=== PATIENT | female | born 1990 | race Caucasian/White ===

== ENCOUNTER 2021-04-01 10:02 | Emergency (ER) | payer BC ==
[2021-04-01 11:48] LABS: BASOPHILS % (AUTO) 0.6 %; EOSINOPHILS # (AUTO) 0.1 10^3/uL (0.0-0.7); EOSINOPHILS % (AUTO) 1.3 %; HCT - HEMATOCRIT 37.6 % (37.0-47.0); HGB - HEMOGLOBIN 12.5 g/dL (12.0-16.0); LYMPHOCYTES # (AUTO) 1.7 10^3/uL (1.5-3.5); LYMPHOCYTES % (AUTO) 24.1 %; MEAN CORPUSCULAR HGB CONC 33.2 g/dL (32.0-36.0); MEAN CORPUSCULAR VOLUME 102.2 fL (81.0-99.0); MEAN PLATELET VOLUME 10.5 fL (7.9-10.8); MONOCYTES # (AUTO) 0.5 10^3/uL (0.0-1.0); MONOCYTES % (AUTO) 6.8 %; NEUTROPHILS # (AUTO) 4.7 10^3/uL (1.5-6.6); NEUTROPHILS % (AUTO) 67.1 %; PLT - PLATELET COUNT 311 10^3/uL (130-450); RED BLOOD COUNT 3.68 10^6/uL (4.20-5.40); RED CELL DISTRIBUTION WIDTH 12.3 % (12.0-15.0); WHITE BLOOD COUNT 6.9 x10^3/uL (4.8-10.8)
[2021-04-01 12:01] LABS: ALBUMIN 4.2 g/dL (3.2-5.5); ALBUMIN/GLOBULIN RATIO 1.6 (1.0-2.2); ALKALINE PHOSPHATASE 65 IU/L (42-121); ALT ALANINE AMINOTRANSFERASE < 10 IU/L (10-60); AST ASPARTATE AMINOTRANSFERASE 15 IU/L (10-42); BILIRUBIN,TOTAL 0.8 mg/dL (0.2-1.0); BUN - BLOOD UREA NITROGEN 7 mg/dL (6-20); CALCIUM 9.1 mg/dL (8.5-10.3); CARBON DIOXIDE - CO2 23 mmol/L (21-32); CHLORIDE 106 mmol/L (101-111); CREATININE 0.5 mg/dL (0.4-1.0); GFR - MDRD 146 (>89); GLUCOSE 94 mg/dL (70-100); LIPASE 28 U/L (22-51); SODIUM 137 mmol/L (135-145); TOTAL PROTEIN 6.9 g/dL (6.7-8.2)
--- NOTE | 2021-04-01 12:14 | Ultrasound Report ---
PROCEDURE: OB First Trimester INDICATIONS: 11 wks vag bleed OUTSIDE/PRIOR DATING DATA: Last menstrual period (LMP): 01/11/2021. LMP-based estimated date of delivery (DANIEL): 10/18/2021. First dating scan (date and location): 04/01/2021. Estimated date of delivery (DANIEL) from first dating scan: Estimated 11/23/2021 based on mean gestational sac diameter. TECHNIQUE: Real-time scanning was performed of the fetus and maternal pelvic organs, with image documentation. T ransvaginal ultrasound was performed. COMPARISON: None. FINDINGS: Embryo: No crown-rump length is visualized at this time. Mean gestational sac diameter 1.5 cm. This corresponds to estimated gestational age of 6 weeks 2 days. No yolk sac is seen. Heart rate: Not applicable. Subchorionic hemorrhage right of the gestational sac measuring 3.4 x 2.2 x 1.1 cm. Measurement variability in dating: +/- 4 weeks by LMP, +/- 7 days by mean sac diameter (use before 6 weeks gestation if crown-rump length not able to be measured), +/- 5 days by crown-rump length (6-12 weeks gestation). Maternal organs: Ovaries are within normal limits. Left ovary corpus luteum measuring 1.4 cm. Small ovarian follicles. IMPRESSION: 1. Intrauterine gestational sac corresponding to estimated gestational age of 6 weeks 2 days. This is discordant with the clinical dating based on LMP. No pole or yolk sac is seen. Ultrasound find ings suspicious for, but not diagnostic of, failure. -Follow-up ultrasound in approximately 14 days could be performed for confirmation of failu re. Recommend trending beta hCG. 2. Small subchorionic hemorrhage. Reviewed by: Guanako Del Rosario MD on 04/01/2021 11:13 AM CLAUDIO Approved by: Guanako Del Rosario MD on 04/01/2021 11:13 AM CLAUDIO Station ID: [id number]
[2021-04-01 12:28] LABS: BILIRUBIN,URINE NEGATIVE (NEGATIVE); GLUCOSE, URINE (UA) NEGATIVE (NEGATIVE); KETONES,URINE (UA) NEGATIVE (NEGATIVE); LEUKOCYTE ESTERASE, URINE NEGATIVE (NEGATIVE); NITRITE,URINE NEGATIVE (NEGATIVE); OCCULT BLOOD,URINE TRACE-LYSE (NEGATIVE); PROTEIN,URINE NEGATIVE (NEGATIVE); UROBILINOGEN,URINE 0.2 (NORMAL) E.U./dL (NORMAL)
[2021-04-01 12:31] LABS: CLARITY,URINE CLEAR (CLEAR)
--- NOTE | 2021-04-01 12:50 | ED Physician Documentation ---
PD HPI FEMALE - Stated complaint Stated Complaint: FEMALE /SPOTTING - Chief complaint Chief Complaint: Abd Pain - History obtained from History obtained from: Patient, Family - History of Present Illness Timing - onset: How many days ago (5) Timing - duration: Days (5) Timing - details: Gradual onset Pain level max: 1 Pain level max: 1 Associated symptoms: Vaginal bleeding (spotting). 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 No passage of large tissue. Sent in by her road traffic controller today. Nothing makes it better or worse Review of Systems Ten Systems: 10 systems reviewed and negative Constitutional: denies: Fever, Chills Throat: denies: Sore throat Respiratory: denies: Cough GI: denies: Abdominal Pain, Nausea, Vomiting, Diarrhea : denies: Dysuria Skin: denies: Rash Musculoskeletal: denies: Neck pain, Back pain Neurologic: denies: Headache PD PAST MEDICAL HISTORY - Past Medical History Past Medical History: No - Past Surgical History Past Surgical History: No - Present Medications Home Medications: Ambulatory Orders Medication Instructions Recorded Confirmed Pnv No.95/Ferrous Fum/Folic AC 1 each PO DAILY 04/01/21 04/01/21 [ Tablet] - Allergies Allergies/Adverse Reactions: Allergies Allergy/AdvReac Type Severity Reaction Status Date / Time No Known Drug Allergies Allergy Verified 04/01/21 10:14 - Social History Does the pt smoke?: No Smoking Status: Never smoker PD ED PE NORMAL - Vitals Vital signs reviewed: Yes - General General: Alert and oriented X 3, No acute distress, Well developed/nourished - HEENT HEENT: PERRL, Moist mucous membranes - Neck Neck: Supple, no meningeal sign - Cardiac Cardiac: RRR, Strong equal pulses - Respiratory Respiratory: No respiratory distress - Abdomen Abdomen: Soft, Non tender, Non distended - Derm Derm: Warm and dry - Extremities Extremities: No edema - Neuro Neuro: Alert and oriented X 3 - Psych Psych: Normal mood, Normal affect Results - Vitals Vitals: Vital Signs - 24 hr 04/01/21 10:12 Temperature 36.3 C L Heart Rate 94 Respiratory 16 Rate Blood Pressure 124/55 L O2 Saturation 96 Oxygen O2 Source Room air - Labs Labs: Laboratory Tests 04/01/21 04/01/21 04/01/21 11:00 11:40 11:40 WBC 6.9 RBC 3.68 L Hgb 12.5 Hct 37.6 MCV 102.2 H MCH 34.0 H MCHC 33.2 RDW 12.3 Plt Count 311 MPV 10.5 Neut # (Auto) 4.7 Lymph # (Auto) 1.7 [place] # (Auto) 0.5 Eos # (Auto) 0.1 Baso # (Auto) 0.0 Absolute Nucleated RBC 0.00 Nucleated RBC % 0.0 Sodium 137 Potassium 4.0 Chloride 106 Carbon Dioxide 23 Anion Gap 8.0 BUN 7 Creatinine 0.5 Estimated GFR (MDRD) 146 Glucose 94 Calcium 9.1 Total Bilirubin 0.8 AST 15 ALT < 10 L Alkaline Phosphatase 65 Total Protein 6.9 Albumin 4.2 Globulin 2.7 Albumin/Globulin Ratio 1.6 Lipase 28 HCG, Quant Urine Color YELLOW Urine Clarity CLEAR Urine pH 6.0 Ur Specific [place] 1.010 Urine Protein NEGATIVE Urine Glucose (UA) NEGATIVE Urine Ketones NEGATIVE Urine Occult Blood TRACE-LYSE Urine Nitrite NEGATIVE Urine Bilirubin NEGATIVE Urine Urobilinogen 0.2 (NORMAL) Ur Leukocyte Esterase NEGATIVE Ur Microscopic Review NOT INDICATED Urine Culture Comments NOT INDICATED 04/01/21 11:40 WBC RBC Hgb Hct MCV MCH MCHC RDW Plt Count MPV Neut # (Auto) Lymph # (Auto) [place] # (Auto) Eos # (Auto) Baso # (Auto) Absolute Nucleated RBC Nucleated RBC % Sodium Potassium Chloride Carbon Dioxide Anion Gap BUN Creatinine Estimated GFR (MDRD) Glucose Calcium Total Bilirubin AST ALT Alkaline Phosphatase Total Protein Albumin Globulin Albumin/Globulin Ratio Lipase HCG, Quant 6263.00 Urine Color Urine Clarity Urine pH Ur Specific [place] Urine Protein Urine Glucose (UA) Urine Ketones Urine Occult Blood Urine Nitrite Urine Bilirubin Urine Urobilinogen Ur Leukocyte Esterase Ur Microscopic Review Urine Culture Comments - Rads (name of study) OB US Radiology: Final report received, EMP read contemporaneously, See rad report PD MEDICAL DECISION MAKING - ED course Complexity details: reviewed results, re-evaluated patient, considered differential, d/w patient, d/w family ED course: 30-year-old female with vaginal bleeding affecting early . Her gestational age is approximately 6 weeks and 2 days via ultrasound, but no pole or yolk sac is seen. failure versus early . Recommend follow-up hCG in 2 to 3 days for further evaluation. No evidence of ectopic. Patient counseled regarding signs and symptoms for which I believe and urgent re-evaluation would be necessary. Patient with good understanding of and agreement to plan and is comfortable going home at this time This document was made in part using voice recognition software. While efforts are made to proofread this document, sound alike and grammatical errors may occur. IMPRESSION: 1. Intrauterine gestational sac corresponding to estimated gestational age of 6 weeks 2 days. This is discordant with the clinical dating based on LMP. No pole or yolk sac is seen. Ultrasound findings suspicious for, but not diagnostic of, failure. -Follow-up ultrasound in approximately 14 days could be performed for confirmation of failure. Recommend trending beta hCG. 2. Small subchorionic hemorrhage. Departure - Departure Disposition: Home, Self Care Clinical Impression: Vaginal bleeding affecting early Condition: Good Instructions: ED Miscarriage Poss Follow-Up: Desiree Dyer LMW [Physician No Access] - Within 3 Days Comments: Follow-up with your road traffic controller on Friday or Friday for a repeat hCG level. It is possible that you are having a miscarriage, this will become more likely if the hCG level is gone down on Friday or Friday. If the hCG level is increasing, they will likely want to repeat an ultrasound in 1 to 2 weeks. Return if you worsen. Your hCG level is 6263 today. Your ultrasound results are below
[2021-04-01 13:03] VITALS: BP 108/69
== END 2021-04-01 13:05 | disposition home or self-care (01) ==
LOC: ED 10:02
DX: O20.9 Hemorrhage in early pregnancy, unspecified (principal); Z3A.00 Weeks of gestation of pregnancy not specified; Z3A.01 Less than 8 weeks gestation of pregnancy
CPT/HCPCS: 36415; 80053; 81001; 81003; 83690; 84702; 85025; 87086; 99283; 99284

== ENCOUNTER 2021-04-06 21:34 | Day surgery (SDC) | payer BC ==
[2021-04-06] MEDS ORDERED: SODIUM CHLORIDE 0.9% 1,000 ML IV STA (21:46)
[2021-04-06 21:59] LABS: BASOPHILS # (AUTO) 0.1 10^3/uL (0.0-0.1); BASOPHILS % (AUTO) 0.4 %; EOSINOPHILS # (AUTO) 0.1 10^3/uL (0.0-0.7); EOSINOPHILS % (AUTO) 0.3 %; HCT - HEMATOCRIT 36.7 % (37.0-47.0); HGB - HEMOGLOBIN 12.6 g/dL (12.0-16.0); LYMPHOCYTES # (AUTO) 2.9 10^3/uL (1.5-3.5); LYMPHOCYTES % (AUTO) 16.7 %; MEAN CORPUSCULAR HEMOGLOBIN 34.4 pg (27.0-31.0); MEAN CORPUSCULAR HGB CONC 34.3 g/dL (32.0-36.0); MEAN CORPUSCULAR VOLUME 100.3 fL (81.0-99.0); MEAN PLATELET VOLUME 11.3 fL (7.9-10.8); MONOCYTES # (AUTO) 0.7 10^3/uL (0.0-1.0); MONOCYTES % (AUTO) 4.2 %; NEUTROPHILS # (AUTO) 13.3 10^3/uL (1.5-6.6); PLT - PLATELET COUNT 380 10^3/uL (130-450); RED BLOOD COUNT 3.66 10^6/uL (4.20-5.40)
[2021-04-06 22:05] LABS: CALCIUM 9.2 mg/dL (8.5-10.3); CREATININE 0.8 mg/dL (0.4-1.0); POTASSIUM 3.5 mmol/L (3.5-5.0)
[2021-04-06] MEDS ORDERED: ACETAMINOPHEN 1,000 MG/100 ML 100 ML IV STA (22:32)
[2021-04-07] MEDS ORDERED: MORPHINE 2 MG/ML CARPUJECT IVP STA ×3 (00:07→00:34)
[2021-04-07] MEDS ORDERED: SODIUM CHLORIDE 0.9% 1,000 ML IV STA (00:15)
[2021-04-07] MEDS ORDERED: HYDROmorphone 1 MG/ML CARPUJECT IVP STA (01:09)
--- NOTE | 2021-04-07 01:43 | ED Physician Documentation ---
PD HPI FEMALE - Stated complaint Stated Complaint: FEMALE - Chief complaint Chief Complaint: Abd Pain - History obtained from History obtained from: Patient - History of Present Illness Timing - onset: Enter time (18:30), Today Timing - details: Abrupt onset Pain level max: 8 Associated symptoms: Pelvic pain, Vaginal bleeding. 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 US at that time was concerning for failure (per radiology reading). Patient says that she was seen in follow up/outpatient setting since then and f/u HCG had dropped significantly and she was told she was miscarrying. Patient opted to miscarry at home, as her symptoms were mild. However, at approximately 6:30 PM tonight, she had sudden and significant worsening of amount of vaginal bleeding (had only been spotting) with clots as well as new onset of pelvic cramping pain which is severe at times. I was asked to see this patient shortly after she arrived as she had syncope during triage and found to be hypotensive. Review of Systems Constitutional: reports: Reviewed and negative Cardiac: reports: Reviewed and negative Respiratory: reports: Reviewed and negative GI: denies: Abdominal Pain (pelvic pain and cramping, but not abdominal pain per se), Nausea, Vomiting : reports: Now EGA (patient recently told she is having miscarriage (see HPI)) Musculoskeletal: reports: Reviewed and negative Neurologic: reports: Generalized weakness (in triage but not at home), Syncope (in triage) PD PAST MEDICAL HISTORY - Past Medical History Past Medical History: No - Past Surgical History Past Surgical History: No - Present Medications Home Medications: Ambulatory Orders Medication Instructions Recorded Confirmed Pnv No.95/Ferrous Fum/Folic AC 1 each PO DAILY 04/01/21 04/06/21 [ Tablet] Ibuprofen [Motrin] 600 mg PO Q6H PRN #15 tab 04/07/21 - Allergies Allergies/Adverse Reactions: Allergies Allergy/AdvReac Type Severity Reaction Status Date / Time No Known Drug Allergies Allergy Verified 04/01/21 10:14 - Social History Does the pt smoke?: No Smoking Status: Never smoker Does the pt drink ETOH?: No Does the pt have substance abuse?: No - Immunizations Immunizations are current?: Yes PD ED PE NORMAL - Vitals Vital signs reviewed: Yes - General General: Alert and oriented X 3, Well developed/nourished, Other (appears pale, obvious painful distress as she becomes more awake and alert) - HEENT HEENT: Other (tacky mucous membranes) - Cardiac Cardiac: RRR, No murmur - Respiratory Respiratory: No respiratory distress, Clear bilaterally - Abdomen Abdomen: Soft, Non distended, Other (midline lower abdominal and anterior pelvic tenderness) - Derm Derm: Other (pale) Results - Vitals Vitals: Vital Signs - 24 hr 04/06/21 04/06/21 04/06/21 21:40 22:00 22:40 Temperature 36.6 C Heart Rate 84 64 73 Respiratory 24 18 16 Rate Blood Pressure 54/40 L 100/51 L 103/71 O2 Saturation 100 99 04/07/21 04/07/21 04/07/21 00:40 02:00 03:48 Temperature 36.1 C L Heart Rate 68 61 125 H Respiratory 18 16 22 Rate Blood Pressure 110/67 108/61 114/54 L O2 Saturation 100 100 100 04/07/21 04/07/21 04/07/21 03:50 03:55 04:00 Temperature 36.1 C L 36.1 C L 36.1 C L Heart Rate 115 H 116 H 109 H Respiratory 19 22 22 Rate Blood Pressure 107/65 117/52 L 114/51 L O2 Saturation 100 100 100 04/07/21 04/07/21 04/07/21 04:05 04:10 04:24 Temperature 36.1 C L 36.1 C L 36.6 C Heart Rate 102 H 103 H 94 Respiratory 20 21 12 Rate Blood Pressure 107/56 L 108/52 L 117/49 L O2 Saturation 99 100 100 04/07/21 04/07/21 04/07/21 04:30 04:47 05:02 Temperature 36.6 C 36.6 C 36.5 C Heart Rate 105 H 91 96 Respiratory 12 16 16 Rate Blood Pressure 115/48 L 107/54 L 94/59 L O2 Saturation 99 99 99 04/07/21 04/07/21 04/07/21 05:17 05:42 06:17 Temperature 36.6 C 36.7 C Heart Rate 96 95 84 Respiratory 16 16 16 Rate Blood Pressure 100/57 L 105/52 L 104/52 L O2 Saturation 99 98 98 Oxygen O2 Source Room air - Labs Labs: Laboratory Tests 04/06/21 04/06/21 04/06/21 21:46 21:46 21:46 WBC 17.0 H RBC 3.66 L Hgb 12.6 Hct 36.7 L MCV 100.3 H MCH 34.4 H MCHC 34.3 RDW 12.0 Plt Count 380 MPV 11.3 H Neut # (Auto) 13.3 H Lymph # (Auto) 2.9 [place] # (Auto) 0.7 Eos # (Auto) 0.1 Baso # (Auto) 0.1 Absolute Nucleated RBC 0.00 Nucleated RBC % 0.0 Sodium 134 L Potassium 3.5 Chloride 102 Carbon Dioxide 21 Anion Gap 11.0 BUN 11 Creatinine 0.8 Estimated GFR (MDRD) 85 L Glucose 139 H POC Whole Bld Glucose Calcium 9.2 HCG, Quant Nasal Adenovirus (PCR) Nasal B. parapertussis DNA (PCR) Nasal Coronavir 229E PCR Nasal Coronavir HKU1 PCR Nasal Coronavir NL63 PCR Nasal Coronavir OC43 PCR Nasal Enterovir/Rhinovir PCR Nasal Influenza B PCR Nasal Influenza A PCR Nasal Parainfluen 1 PCR Nasal Parainfluen 2 PCR Nasal Parainfluen 3 PCR Nasal Parainfluen 4 PCR Nasal RSV (PCR) Nasal B.pertussis DNA PCR Nasal C.pneumoniae (PCR) Lizandro Human Metapneumo PCR Nasal M.pneumoniae (PCR) Nasal SARS-CoV-2 (PCR) Blood Type A POSITIVE Antibody Screen NEGATIVE 04/06/21 04/06/21 04/07/21 21:46 21:47 01:45 WBC RBC Hgb Hct MCV MCH MCHC RDW Plt Count MPV Neut # (Auto) Lymph # (Auto) [place] # (Auto) Eos # (Auto) Baso # (Auto) Absolute Nucleated RBC Nucleated RBC % Sodium Potassium Chloride Carbon Dioxide Anion Gap BUN Creatinine Estimated GFR (MDRD) Glucose POC Whole Bld Glucose 150 H Calcium HCG, Quant 1485.00 Nasal Adenovirus (PCR) NOT DETECTED Nasal B. parapertussis DNA (PCR) NOT DETECTED Nasal Coronavir 229E PCR NOT DETECTED Nasal Coronavir HKU1 PCR NOT DETECTED Nasal Coronavir NL63 PCR NOT DETECTED Nasal Coronavir OC43 PCR NOT DETECTED Nasal Enterovir/Rhinovir PCR NOT DETECTED Nasal Influenza B PCR NOT DETECTED Nasal Influenza A PCR NOT DETECTED Nasal Parainfluen 1 PCR NOT DETECTED Nasal Parainfluen 2 PCR NOT DETECTED Nasal Parainfluen 3 PCR NOT DETECTED Nasal Parainfluen 4 PCR NOT DETECTED Nasal RSV (PCR) NOT DETECTED Nasal B.pertussis DNA PCR NOT DETECTED Nasal C.pneumoniae (PCR) NOT DETECTED Lizandro Human Metapneumo PCR NOT DETECTED Nasal M.pneumoniae (PCR) NOT DETECTED Nasal SARS-CoV-2 (PCR) NOT DETECTED Blood Type Antibody Screen - Rads (name of study) first trimester US with TV Radiology: Prelim report reviewed, See rad report PD MEDICAL DECISION MAKING - ED course Complexity details: reviewed old records, reviewed results, re-evaluated patient, considered differential, d/w patient ED course: presents with vaginal bleeding and severe pelvic pain in setting of recently being told she is in the process of having miscarriage. She is markedly hypotensive in triage and has syncopal episode but she recovered from this upon being brought into ED room and placed on stretcher in trendelenburg position. IV fluids given although her blood pressure already had improved. H/H is normal and US shows there is still POC in lower uterine segment. She had ongoing waxing and waning pelvic pain that was severe at times. No improvement with ofirmev, minimal with morphine (2mg x 2 doses). I was reluctant to give larger doses or stronger narcotics for earlier part of ED stay due to soft blood pressures and she had a second drop into hypotensive blood pressures later in stay with pre- syncopal symptoms (lightheaded, again became pale), but she again recovered from this with more IV fluids. I discussed the case with Dr. Mars (instructor product inspection library circulation clerk) who came to ED, evaluated patient, and will take patient to OR. Her blood pressure improved significantly enough to allow for 1mg IV dilaudid late in ED stay. Departure - Departure Disposition: ED Transfer to [facility] Clinical Impression: Incomplete Syncope Qualifiers: Syncope type: unspecified Qualified Code(s): R55 - Syncope and collapse Condition: Stable Discharge Date/Time: 04/07/21 02:40
--- NOTE | 2021-04-07 02:06 | HISTORY & PHYSICAL EXAMINATION ---
HPI - History Obtained From Records Reviewed: RN notes reviewed History obtained from: Patient, Family Exam limitations: No limitations - History of Present Illness Severity at the worst: reports: Severe Pain Quality: reports: Sharp, Cramping Context-Pain started w/: reports: Other (contractions) Timing: reports: Gradual onset Duration: reports: Days: (1) Improved with: reports: Nothing Worsened by: reports: Nothing HPI Comment/Other: Patient is a 30-year-old G1 at 12 weeks gestation by LMP of late December and 6 weeks by previous ultrasound. She was seen several days ago for concern for miscarriage and was expectantly managing this. She started bleeding more heavily last night and came to the ED with lightheadedness. She did have two witnessed syncopal vs near syncopal events with blood pressures down to 50s/40s. She has been bleeding heavier this evening, but has decreased over the last several hours. This was a planned and desired . She is having severe cramps with contractions and is in significant pain during each contraction. She is concerned about how much she is affected by this and would like further management. PMH, PSH, FH all unremarkable. No known drug allergies. Only takes vitamins. 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 : positive: None HEENT: positive: None Psych: positive: None Musculoskeletal: positive: None Derm: positive: None MRSA Hx?: No Social & Family Hx - Social History Does the pt smoke?: No Smoking Status: Never smoker Does the pt drink ETOH?: No Does the pt have substance abuse?: No Meds/Allgy - Home Medications Home Medications: Ambulatory Orders Medication Instructions Recorded Confirmed Pnv No.95/Ferrous Fum/Folic AC 1 each PO DAILY 04/01/21 04/06/21 [ Tablet] - Allergies Allergies/Adverse Reactions: Allergies Allergy/AdvReac Type Severity Reaction Status Date / Time No Known Drug Allergies Allergy Verified 04/01/21 10:14 Review of Systems - Constitutional Constitutional: denies: Fatigue, Fever, Chills, Weakness - Cardiovascular Cariovascular: reports: Lightheadedness, Syncope. denies: Irregular heart rate, Palpitations, Chest pain - Respiratory Respiratory: denies: Cough, Wheezing, Orthopnea, SOB at rest, SOB with exertion - Gastrointestinal Gastrointestinal: reports: Abdominal pain. denies: Constipation, Diarrhea, Change in bowel habits, Nausea, Vomiting - Genitourinary Genitourinary: denies: Dysuria, Frequency, Hematuria - Musculoskeletal Musculoskeletal: reports: Back pain. denies: Muscle weakness - Integumentary Integumentary: denies: Rash - Neurological Neurological: denies: General weakness Exam - Vital Signs Vital Signs: Vital Signs x48h Temp Pulse Resp BP Pulse Ox 04/07/21 02:00 61 16 108/61 100 04/07/21 00:40 68 18 110/67 100 04/06/21 22:40 73 16 103/71 99 04/06/21 22:00 64 18 100/51 L 04/06/21 21:40 97.9 F 84 24 54/40 L 100 - Physical Exam General Appearance: positive: No acute distress, Alert Eyes Bilateral: positive: Normal inspection, PERRL, EOMI Respiratory: positive: No respiratory distress Cardiovascular: positive: Regular rate & rhythm Abdomen: positive: Non-tender, No distention. negative: Guarding Neurologic/Psychiatric: positive: Oriented x3, CN's nml (2-12), Motor nml, Sensation nml, Mood/affect nml Comments/Other: ALUMINUM POOL INSTALLER: Normal external genitalia, no lesions or masses. Normal-appearing urethra and urethral meatus. Normal vaginal mucosa with rugation. Copious amount of blood and clot. Cervix dilated to fingertip. Uterus tender, frequent contractions. No adnexal masses or tenderness. Results - Lab Results Fish Bones: 04/06/21 21:46 04/06/21 21:46 Other Lab Results: Lab Results x24hrs 04/06/21 04/06/21 04/06/21 Range/Units 21:47 21:46 21:46 WBC (4.8-10.8) x10^3/uL RBC (4.20-5.40) 10^6/uL Hgb (12.0-16.0) g/dL Hct (37.0-47.0) % MCV (81.0-99.0) fL MCH (27.0-31.0) pg MCHC (32.0-36.0) g/dL RDW (12.0-15.0) % Plt Count (130-450) 10^3/uL MPV (7.9-10.8) fL Neut # (Auto) (1.5-6.6) 10^3/uL Lymph # (Auto) (1.5-3.5) 10^3/uL [place] # (Auto) (0.0-1.0) 10^3/uL Eos # (Auto) (0.0-0.7) 10^3/uL Baso # (Auto) (0.0-0.1) 10^3/uL Absolute Nucleated RBC x10^3/uL Nucleated RBC % /100WBC Sodium 134 L (135-145) mmol/L Potassium 3.5 (3.5-5.0) mmol/L Chloride 102 (101-111) mmol/L Carbon Dioxide 21 (21-32) mmol/L Anion Gap 11.0 (6-13) BUN 11 (6-20) mg/dL Creatinine 0.8 (0.4-1.0) mg/dL Estimated GFR (MDRD) 85 L (>89) Glucose 139 H (70-100) mg/dL POC Whole Bld Glucose 150 H (70 - 100) mg/dL Calcium 9.2 (8.5-10.3) mg/dL HCG, Quant 1485.00 mIU/mL Blood Type Antibody Screen 04/06/21 04/06/21 Range/Units 21:46 21:46 WBC 17.0 H (4.8-10.8) x10^3/uL RBC 3.66 L (4.20-5.40) 10^6/uL Hgb 12.6 (12.0-16.0) g/dL Hct 36.7 L (37.0-47.0) % MCV 100.3 H (81.0-99.0) fL MCH 34.4 H (27.0-31.0) pg MCHC 34.3 (32.0-36.0) g/dL RDW 12.0 (12.0-15.0) % Plt Count 380 (130-450) 10^3/uL MPV 11.3 H (7.9-10.8) fL Neut # (Auto) 13.3 H (1.5-6.6) 10^3/uL Lymph # (Auto) 2.9 (1.5-3.5) 10^3/uL [place] # (Auto) 0.7 (0.0-1.0) 10^3/uL Eos # (Auto) 0.1 (0.0-0.7) 10^3/uL Baso # (Auto) 0.1 (0.0-0.1) 10^3/uL Absolute Nucleated RBC 0.00 x10^3/uL Nucleated RBC % 0.0 /100WBC Sodium (135-145) mmol/L Potassium (3.5-5.0) mmol/L Chloride (101-111) mmol/L Carbon Dioxide (21-32) mmol/L Anion Gap (6-13) BUN (6-20) mg/dL Creatinine (0.4-1.0) mg/dL Estimated GFR (MDRD) (>89) Glucose (70-100) mg/dL POC Whole Bld Glucose (70 - 100) mg/dL Calcium (8.5-10.3) mg/dL HCG, Quant mIU/mL Blood Type A POSITIVE Antibody Screen NEGATIVE - Diagnostic Imaging Results Diagnostic Imaging Results: positive: Read independently Impression/Plan - Problem List Problem List: 1. 6 weeks gestation -Discrepancy from LMP. Gestational sac seen, but no fetus. Likely anembryonic demise. HCG decreased from 6000 to 1000 over the last week. -Today's ultrasound was not finalized, but review of images is consistent with prior ultrasound with a gestational sac in the lower uterine segment. 2. Incomplete -Fingertip dilation. Attempted removal of during pelvic exam, but only a small amount of dilation and copious blood and clots evacuated on exam -HGB stable at 12.6, but with episodes of syncope and hypotension, observation is waranted for either surgical, medical, or expectant management. -Discussed risks and benefits of expectant, medical, and surgical management. Discussed that around 80-85 percent of people will pass with expectant management, 90-95 with medical, and essentially 100 percent with surgical management. Discussed risks of perforation, infection, bleeding, and scar formation with patient. -Patient elects for surgical management at this time. -Plan for suction D&C, doxycycline for prophylaxis. 3. Contraceptive counselling -Declined need for contraception. Suggested waiting for several cycles before attempting to conceive again. Patient and her partner think they will try again in the near future.
--- NOTE | 2021-04-07 02:15 | ANESTHESIA ---
Pre-Anesthesia VS, & Labs - Diagnosis missed - Procedure D&C Vital Signs: Temp Pulse Resp BP Pulse Ox 36.6 C 61 16 108/61 100 04/06/21 21:40 04/07/21 02:00 04/07/21 02:00 04/07/21 02:00 04/07/21 02:00 Height: 5 ft 9 in Weight (kg): 63.503 kg Body Mass Index: 20.7 BMI Classification: Healthy weight - NPO Other Last Fluid Intake: 0100 Last Food Intake: 04/07/21 2030 - Is Patient ?: Yes - Lab Results Current Lab Results: Laboratory Tests 04/06/21 21:47: POC Whole Bld Glucose 150 H 04/06/21 21:46: HCG, Quant 1485.00 04/06/21 21:46: Sodium 134 L, Potassium 3.5, Chloride 102, Carbon Dioxide 21, Anion Gap 11.0, BUN 11, Creatinine 0.8, Estimated GFR (MDRD) 85 L, Glucose 139 H , Calcium 9.2 04/06/21 21:46: WBC 17.0 H, RBC 3.66 L, Hgb 12.6, Hct 36.7 L, MCV 100.3 H, MCH 34.4 H, MCHC 34.3, RDW 12.0, Plt Count 380, MPV 11.3 H, Neut # (Auto) 13.3 H, Lymph # (Auto) 2.9, [place] # (Auto) 0.7, Eos # (Auto) 0.1, Baso # (Auto) 0.1, Absolute Nucleated RBC 0.00, Nucleated RBC % 0.0 04/06/21 21:46: Blood Type A POSITIVE, Antibody Screen NEGATIVE Lab results reviewed: Yes Fish Bones: 04/06/21 21:46 04/06/21 21:46 Home Medications and Allergies Pnv No.95/Ferrous Fum/Folic AC [ Tablet] 1 each PO DAILY 04/01/21 Allergies/Adverse Reactions: Allergies Allergy/AdvReac Type Severity Reaction Status Date / Time No Known Drug Allergies Allergy Verified 04/01/21 10:14 Anes History & Medical History - Anesthetic History Anesthesia Complications: reports: No previous complications Family history of Anesthesia Complications: Denies Family history of Malignant Hyperthermia: Denies - Medical History Cardiovascular: reports: None Pulmonary: reports: None Gastrointestinal: reports: None Urinary: reports: None Neuro: reports: None Musculoskeletal: reports: None Endocrine/Autoimmune: reports: None Skin: reports: None Smoking Status: Never smoker Exam General: Alert, Oriented x3, Cooperative, No acute distress Dental: WNL Mouth Openin Fingerbreadth Neck Mobility: Normal Mallampati classification: I Respiratory: Lungs clear, Normal breath sounds, No respiratory distress, No accessory muscle use Cardiovascular: Regular rate, Normal S1, Normal S2, No murmurs Plan Anesthesia Type: General Consent for Procedure(s) Verified and Reviewed: Yes Code Status: Attempt Resuscitation ASA classification: 2-Mild systemic disease Is this case an emergency?: Yes
[2021-04-07] MEDS ORDERED: LIDOCAINE-MPF 2% 5 ML VIAL ONE (02:26)
[2021-04-07] MEDS ORDERED: SUCCINYLCHOLINE 200 MG/10 ML VIAL ONE (02:26)
[2021-04-07] MEDS ORDERED: PROPOFOL 200 MG/20 ML VIAL IVP ONE (02:26)
[2021-04-07] MEDS ORDERED: ONDANSETRON 4 MG/2 ML VIAL ONE (02:26)
[2021-04-07] MEDS ORDERED: fentaNYL 100 MCG/2 ML VIAL ONE (02:26)
[2021-04-07] MEDS ORDERED: MIDAZOLAM 2 MG/2 ML VIAL ONE (02:26)
[2021-04-07] MEDS ORDERED: DEXAMETHASONE 4 MG/ML VIAL ONE (02:26)
[2021-04-07] MEDS ORDERED: BUPIVACAINE 0.25% PF 30 ML VIAL ONE (02:49)
[2021-04-07] MEDS ORDERED: ePHEDrine 50 MG/ML VIAL IVP ONE (03:05)
[2021-04-07 03:10] LABS: B. PARAPERTUSSIS- RESP PCR PAN NOT DETECTED; B. PERTUSSIS- RESP PCR PANEL NOT DETECTED; C. PNEUMONIAE- RESP PCR PANEL NOT DETECTED; CORONAVIRUS 229E-RESP PCR NOT DETECTED; CORONAVIRUS HKU1-RESP PCR NOT DETECTED; CORONAVIRUS NL63-RESP PCR NOT DETECTED; CORONAVIRUS OC43-RESP PCR NOT DETECTED; HUMAN METAPNEUMOVIRUS NOT DETECTED; INFLUENZA A- RESP PCR PANEL NOT DETECTED; INFLUENZA B - RESP PCR PANEL NOT DETECTED; M. PNEUMONIAE- RESP PCR PANEL NOT DETECTED; PARAINFLUENZA VIRUS 1 NOT DETECTED; PARAINFLUENZA VIRUS 2 NOT DETECTED; PARAINFLUENZA VIRUS 3 NOT DETECTED; PARAINFLUENZA VIRUS 4 NOT DETECTED; RHINOVIRUS/ENTEROVIRUS NOT DETECTED; RSV- RESP PCR PANEL NOT DETECTED; SARS-CoV-2 -RESP PCR PANEL NOT DETECTED
[2021-04-07] MEDS ORDERED: DOXYCYCLINE INJ 200 MG in SODIUM CHLORIDE 0.9% 250 ML IV ONE (03:15)
[2021-04-07] MEDS ORDERED: BUPIVACAINE 0.25% PF 30 ML VIAL SUBQ ONE ×2 (03:17)
--- NOTE | 2021-04-07 03:52 | OPERATIVE REPORT ---
Operative Report - General Planned Procedure: Suction D&C Pre-Op Diagnosis: Incomplete , 6 week gestation. Procedure Performed: Suction D&C Post Op Diagnosis: Same - Procedure Note Primary Surgeon: Terrence Mars MD Anesthesia Provider: Paul Dye CRNA Anesthesia Technique: General ET tube Pathology: Products of conception Estimated Blood Loss (mL): 400 Urine Output (mL): 500 Findings: 1 cm dilated cervix. Lower uterine segment dilated Complications: None - Other Other Information/Narrative: Patient is a 30-year-old G1 who was taken the the OR for incomplete for a suction D&C. Before the procedure, she was counselled on the risks, alternatives, and benefits of surgical management and agreed it was the best course of action for her care. She was taken to the OR and placed in the dorsal supine position. PO doxycycline was not available, so she received IV doxycycline before starting the procedure. General ET anesthesia was obtained without difficulty. [facility] lithotomy position. She was prepped and draped in the usual sterile fashion. Using a bivalve speculum, the cervix was visualized, approximately 1 cm dilated. There was a small amount of bleeding at that time. The lower uterine segment was noted to be dilated, with only a small amount of cervix remaining. The cervix was grasped with a single tooth tenaculum. 8ml of 1/4% marcaine was used for a paracervical block. The cervix was then easily dilated to 8mm. A 7 mm flexible canula was placed into the cervix and the uterus was measured to be 10 cm in length. The catheter was then attached to suction which was then closed and rotated while withdrawing. The suction was stopped at the cervix and the catheter was removed and suctioned free. Several more passes were taken. After the third pass, a mass of tissue was at the cervical os and was removed with polyp forceps. The fibrous tissue was added to the sample. A rincon curette was used on the uterine sidewalls until a gritty texture was noted. One final pass of the suction curette was performed. There was no bleeding noted. The tenaculum was removed and hemostatic. Sponge counts were correct times 2. The patient was taken to PACU in stable condition.
[2021-04-07] MEDS ORDERED: fentaNYL 100 MCG/2 ML VIAL IVP PRN (03:55)
[2021-04-07] MEDS ORDERED: METOCLOPRAMIDE 10 MG/2 ML VIAL IVP PRN (03:55)
[2021-04-07] MEDS ORDERED: NALOXONE 0.4 MG/ML VIAL IVP PRN (03:55)
[2021-04-07] MEDS ORDERED: ATROPINE ABBOJECT 1 MG/10 ML SYRINGE IVP PRN (03:55)
[2021-04-07] MEDS ORDERED: HYDROmorphone 0.5 MG/0.5 ML SYRINGE IVP PRN (03:55)
[2021-04-07] MEDS ORDERED: MORPHINE 2 MG/ML CARPUJECT IVP PRN (03:55)
[2021-04-07] MEDS ORDERED: ePHEDrine 50 MG/ML VIAL IVP PRN (03:55)
[2021-04-07] MEDS ORDERED: ONDANSETRON 4 MG/2 ML VIAL IVP PRN (03:55)
[2021-04-07] MEDS ORDERED: LACTATED RINGERS 1,000 ML IV SCH (04:00)
[2021-04-07] MEDS ORDERED: miSOPROStoL 100 MCG TABLET PO SCH (04:00)
--- NOTE | 2021-04-07 04:01 | ANESTHESIA POST OP EVALUATION ---
Anesthesia Post Eval - Post Anesthesia Eval Vitals: Last Vital Signs Temp 36.1 C L 04/07/21 03:48 Pulse 125 H 04/07/21 03:48 Resp 22 04/07/21 03:48 BP 114/54 L 04/07/21 03:48 Pulse Ox 100 04/07/21 03:48 CV Function Including HR & BP: Stable Pain Control: Satisfactory Nausea & Vomiting: Negative Mental Status: Baseline Respiratory Status: Airway Patent Hydration Status: Satisfactory Anesthesia Complications: None
[2021-04-07] MEDS ORDERED: oxyCODONE 5 MG TABLET PO PRN (04:11)
[2021-04-07 06:19] VITALS: BP 104/52
--- NOTE | 2021-04-07 13:53 | Ultrasound Report ---
PROCEDURE: OB First Trimester w/TV INDICATIONS: vaginal bleeding, syncope, likely miscarriage TECHNIQUE: Real-time scanning was performed of the fetus and maternal pelvic organs, with image documentation. Endovaginal scanning was also performed to better visualize the fetus and maternal ovaries. COMPARISON: Pelvic ultrasound 04/01/2021 FINDINGS: The fluid collection is seen within the lower uterine segment. Heterogeneously echogenic nonvascular material is seen within the cervix. No pole or yolk sac is seen. Maternal organs: Ovaries the ovaries appear normal. There is trace free fluid in the left adnexa.. IMPRESSION: A mildly irregular fluid collection in the endometrial canal may represent a gestational sac without a yolk sac or pole visualized, versus free endometrial fluid. Echogenic material is seen within the cervix without internal vascularity that could represent endocervical blood products versus prod ucts of conception in transit. Preliminary findings were conveyed to the Emergency Department physician, Dr. Cobb, by the sonograp her at the time of the exam. Reviewed by: Benigno Lutz MD on 04/07/2021 1:52 PM PDT Approved by: Benigno Lutz MD on 04/07/2021 1:52 PM PDT Station ID: [id number]
== END 2021-04-07 07:10 | disposition home or self-care (01) ==
LOC: ED 21:34 → SDS 04-07 01:59 → MS2 04-07 04:20 → SDS 04-07 07:10
PROVIDERS: ATTEND Obstetrics & Gynecology
PROC: 10D17Z9 Manual Extraction of Products of Conception, Retained, Via Natural or Artificial Opening (ICD-10-PCS; principal; 2021-04-07 02:30)
DX: O03.4 Incomplete spontaneous abortion without complication (principal); Z20.822 Contact with and (suspected) exposure to COVID-19
CPT/HCPCS: 0202U; 36415; 59812; 76801; 76817; 80048; 84702; 85025; 86850; 86900; 86901; 96374; 96375; 99284; 99285; A9270; J0131; J0330; J1170